=== PATIENT | female | born 1985 | race Caucasian/White ===

== ENCOUNTER 2021-09-23 00:09 | Emergency (ER) | payer SELFPAY ==
[~2021-09-23] VITALS: Ht 157.5 cm; Wt 82.0 kg
[2021-09-23 01:13] VITALS: BP 135/78
[2021-09-23] MEDS ORDERED: ONDANSETRON 4MG ODT PO ONE (01:45)
[2021-09-23] MEDS ORDERED: LORAZEPAM 1MG TABLET PO ONE (01:45)
[2021-09-23] MEDS ORDERED: LORAZEPAM 2MG/ML CPJ IM ONE (02:00)
== END 2021-09-23 03:41 | disposition home or self-care (01) ==
LOC: ER 00:09
DX: T40.711A Poisoning by cannabis, accidental (unintentional), initial encounter (principal); Y92.89 Other specified places as the place of occurrence of the external cause; F41.0 Panic disorder [episodic paroxysmal anxiety]
CPT/HCPCS: 96372; 99283; J2060; Q0162